=== PATIENT | male | born 1935 | race Caucasian/White ===

== ENCOUNTER 2017-01-18 18:33 | Emergency (ER) | payer MEDICARE, MEDICAID, SELFPAY | END 2017-01-18 19:40 | disposition home or self-care (01) | PROVIDERS: Emergency Provider Emergency Medicine; Family Provider Internal Medicine Adolescent Medicine; Visit Provider Emergency Medicine | DX: S70.01XA Contusion of right hip, initial encounter (principal); W01.0XXA Fall on same level from slipping, tripping and stumbling without subsequent striking against object, initial encounter; Y92.009 Unspecified place in unspecified non-institutional (private) residence as the place of occurrence of the external cause; Z87.442 Personal history of urinary calculi; E11.9 Type 2 diabetes mellitus without complications; Z86.73 Personal history of transient ischemic attack (TIA), and cerebral infarction without residual deficits; I10 Essential (primary) hypertension; J44.9 Chronic obstructive pulmonary disease, unspecified; Z79.02 Long term (current) use of antithrombotics/antiplatelets | CPT/HCPCS: 73502; 73562; 99282 ==